=== PATIENT | female | born 1930 | race Caucasian/White ===

== ENCOUNTER 2016-04-16 17:53 | Inpatient (IN) | payer OTHER ==
[~2016-04-16] VITALS: Ht 167.6 cm; Wt 48.1 kg
--- NOTE | 2016-04-16 17:58 | NUR ---
Patient to ER bed 7 to gown for evaluation. Side rails up. Report given to CELIA RANGEL.
[2016-04-16 18:04] VITALS: BP 134/97; PULSE 60; RESP 18; TEMP 97.6; O2SAT 95
--- NOTE | 2016-04-16 18:04 | NUR ---
ER at bedside examining patient.
--- NOTE | 2016-04-16 18:04 | NUR ---
Pt brought in by niece in stable condition. Per niece, pt has been falling for 4 consecutive days. Pt resides at [facility]. Per niece, pt fell at 1230 today. Pt present w/ large hematoma and obvious deformity to right shoulder. Pt present w/ hematoma to posterior scalp. Pt has a hx of dementia, COPD, DM2, arthritis, anxiety. -sob -chest pain. No acute distress noted at this time, will continue to monitor. Niece is at bedside.
--- NOTE | 2016-04-16 18:15 | NUR ---
Pt present w/ bruising to right hip, left inner thigh. Pt present w/ excoriation to sacral area. Pt present w/ skin tear to left lower leg s/p running into table 1 wk ago.
--- NOTE | 2016-04-16 18:21 | NUR ---
# 20 gauge angiocath placed to left forearm. Use of asceptic technique. Opsite placed over site. Blood return noted. Blood for lab drawn from site and give to Lizeth technology adoption manager. Flushed with 10 cc of normal saline. No evidence of infiltration noted. Patient tolerated well.
[2016-04-16 18:28] LABS: EOSINOPHILS % (AUTO) 0.1 % (0.0-4.0); HEMATOCRIT 37.9 % (36-48); LYMPHOCYTES # (AUTO) 0.8 K/uL (1.0-5.5); LYMPHOCYTES % (AUTO) 6.2 % (20.5-51.5); MEAN CORPUSCULAR HEMOGLOBIN 35 pg (27-31); MEAN CORPUSCULAR HGB CONC 34 % (32-36); MEAN CORPUSCULAR VOLUME 101 fL (79.0-98.0); MONOCYTES # (AUTO) 0.7 K/uL (0.0-1.0); MONOCYTES % (AUTO) 5.1 % (1.7-9.3); NEUTROPHILS # (AUTO) 11.5 K/uL (1.8-7.7); NEUTROPHILS % (AUTO) 88.6 % (40.0-70.0); PLATELET COUNT (AUTO) 219 K/uL (130-430); RED BLOOD CELL COUNT(AUTO) 3.76 MIL/uL (4.2-6.2); RED CELL DISTRIBUTION WIDTH 16.4 % (9.0-15.0)
[2016-04-16 18:49] LABS: PROTHROMBIN TIME 10.9 SECS (9.5-12.5)
[2016-04-16 19:17] LABS: ANION GAP 10 (5-15); CALCIUM 9.1 mg/dL (8.4-11.0); CHLORIDE 101 mmol/L (98-107); CREATININE 0.72 mg/dL (0.55-1.30); GLUCOSE 164 mg/dL (70-99); POTASSIUM 4.3 mmol/L (3.5-5.1); SODIUM SERUM 137 mmol/L (136-145); UREA NITROGEN, BLOOD 16 mg/dL (8-21)
[2016-04-16 19:22] LABS: ALANINE AMINOTRANSFERASE 32 U/L (12-78); ASPARTATE AMINOTRANSFERASE 26 U/L (10-37); CREATINE KINASE, TOTAL 105 U/L (26-192); TOTAL BILIRUBIN 0.6 mg/dL (0.0-1.0); TOTAL PROTEIN, SERUM 6.8 g/dL (6.4-8.3)
--- NOTE | 2016-04-16 19:30 | NUR ---
Pt on stable condtion at this time, VSS, pt following commands.
[2016-04-16] MEDS ORDERED: FOLI-43 PO (19:46)
[2016-04-16] MEDS ORDERED: LIP40 PO (19:46)
[2016-04-16] MEDS ORDERED: ASPI-1063 PO (19:46)
[2016-04-16] MEDS ORDERED: ZOLP5TAB7 PO (19:46)
[2016-04-16] MEDS ORDERED: ATEN-41 PO (19:46)
[2016-04-16] MEDS ORDERED: vit C PO (19:46)
[2016-04-16] MEDS ORDERED: MONT10TA25 PO (19:46)
[2016-04-16] MEDS ORDERED: LORA1TAB PO (19:46)
[2016-04-16] MEDS ORDERED: MELA3TAB43 PO (19:46)
[2016-04-16] MEDS ORDERED: TRAM50TA2 PO (19:46)
[2016-04-16] MEDS ORDERED: METF-509 PO (19:46)
[2016-04-16] MEDS ORDERED: MET2.5 PO (19:46)
[2016-04-16] MEDS ORDERED: BUPR300T55 PO (19:46)
[2016-04-16] MEDS ORDERED: OMEP-130 PO (19:46)
[2016-04-16] MEDS ORDERED: VIT1CAPS25 PO (19:46)
[2016-04-16] MEDS ORDERED: ENAL5TAB85 PO (19:46)
[2016-04-16] MEDS ORDERED: NACL 0.9% 1,000 ML IV ONE (20:14)
[2016-04-16] MEDS ORDERED: MORPHINE 2 MG/ML INJ. SYRINGE IVP ONE (20:15)
[2016-04-16 20:44] LABS: BILIRUBIN,URINE NEGATIVE (NEGATIVE); BLOOD, URINE NEGATIVE (NEGATIVE); CLARITY/URINE CLEAR (CLEAR); COLOR,URINE YELLOW (YELLOW); GLUCOSE,URINE NEGATIVE (NEGATIVE); KETONES,URINE TRACE (NEGATIVE); LEUKOCYTE ESTERASE ,URINE NEGATIVE (NEGATIVE); NITRITE, URINE NEGATIVE (NEGATIVE); PH,URINE 5.5 (5.0-8.0); PROTEIN URINE NEGATIVE (NEGATIVE)
[2016-04-16] MEDS ORDERED: KETOROLAC TROMETHAMINE 30 MG VIAL IVP PRN (21:15)
[2016-04-16] MEDS ORDERED: MORPHINE 2 MG/ML INJ. SYRINGE IVP PRN (21:15)
--- NOTE | 2016-04-16 21:35 | NUR ---
ADMISSION NOTE Received patient from ER via gurney. Patient admitted with diagnosis of Rt shoulder fx. Patient is awake, alert, oriented X 3 accompanied by niece. Patient oriented to hospital room, call light, toileting, pain management and safety-teach back done. Patient informed that Rachel will be her nurse and that their room number is 112A. Personal belongings checked and Belongings List documented. Call light within reach.
[2016-04-16 21:40] VITALS: BP 122/74; PULSE 70; RESP 19; TEMP 98.4; O2SAT 95
--- NOTE | 2016-04-16 21:40 | NUR ---
Patient will be admitted to care of Dr. To. Admitted to med surg unit. Will go to room 112-a. Belongings list completed. Summary report printed. Report given to CELIA Ramos.
[2016-04-16 22:00] VITALS: BP 122/74; PULSE 70; RESP 19; TEMP 98.4; O2SAT 95
--- NOTE | 2016-04-16 22:00 | NUR ---
Opening Note Report received from ER nurse. Patient is in stable condition. Right shoulder bruise observed. IV is to the left FA 20g currently running NS @ TKO. Patient is on a bed alarm and is close to the nurses station. Yellow falls risk band was also placed on her. Call light is within reach. Instructed the patient to use it whenever in need of assistance.
[2016-04-17] VITALS: BP 128/67; PULSE 53; RESP 15; TEMP 98.4; O2SAT 94
--- NOTE | 2016-04-17 00:40 | NUR ---
Rounds Patient is in stable condition. Dr. To spoke with the patient at the bedside and entered orders.
--- NOTE | 2016-04-17 01:29 | NUR ---
CONSULTATION PAGED REASON FOR CONSULTATION:MULTIPLE FALLS WAS CONSULT CALLED?Y PERSON WHO WAS NOTIFIED:JOSE EDUARDO CONSULTING PHYSICIAN:NEGRITA HONG PAPER AND PULP MILL WORKER SPECIALTY:NEURO PAPER AND PULP MILL WORKER PHONE NUMBER:[phone]
[2016-04-17] MEDS ORDERED: INSULIN REGULAR, HUMAN 100 UNITS/ML, 10 ML VIAL (novoLIN R) SUBCUT PRN (01:30)
[2016-04-17] MEDS ORDERED: DEXTROSE 50% JECT 50 ML DISP.SYRIN IVP PRN (01:30)
--- NOTE | 2016-04-17 01:32 | NUR ---
CONSULTATION PAGED REASON FOR CONSULTATION:RIGHT SHOULDER FRACTURE WAS CONSULT CALLED?Y PERSON WHO WAS NOTIFIED:JOSE EDUARDO CONSULTING PHYSICIAN:JOSH GARCIA ([employer]UENTES CLINICAL NURSING INTERN) CERTIFIED ADAPTED PHYSICAL EDUCATOR SPECIALTY:ORTHO CERTIFIED ADAPTED PHYSICAL EDUCATOR PHONE NUMBER:[phone]
--- NOTE | 2016-04-17 02:37 | NUR ---
Rounds Patient is resting in bed. Call light is within reach. Bed alarm is on.
[2016-04-17 04:00] VITALS: BP 142/71; PULSE 65; RESP 16; TEMP 97.4; O2SAT 95
--- NOTE | 2016-04-17 04:37 | NUR ---
Rounds Patient is resting in bed. Call light is within reach.
--- NOTE | 2016-04-17 06:28 | NUR ---
Closing Note Patient is in stable condition. Last blood sugar was 118. No coverage needed. IV is on the RFA 20g, saline locked. Call light is within reach. Bed is in low position and bed alarm is on. Will give report to the oncoming nurse.
--- NOTE | 2016-04-17 07:20 | NUR ---
Initial notes: pt on bed awake, alert and oriented. I.V. access [id number]. scd in placed. discussed plan of care. call light within reach. report received at bedside.
[2016-04-17 07:48] LABS: BASOPHILS % (AUTO) 0.2 % (0.0-2.0); EOSINOPHILS % (AUTO) 0.2 % (0.0-4.0); HEMATOCRIT 31.1 % (36-48); HEMOGLOBIN 10.2 g/dL (12.0-16.0); LYMPHOCYTES # (AUTO) 1.1 K/uL (1.0-5.5); LYMPHOCYTES % (AUTO) 14.1 % (20.5-51.5); MEAN CORPUSCULAR HEMOGLOBIN 34 pg (27-31); MEAN CORPUSCULAR HGB CONC 33 % (32-36); MEAN CORPUSCULAR VOLUME 103 fL (79.0-98.0); MONOCYTES # (AUTO) 1.1 K/uL (0.0-1.0); MONOCYTES % (AUTO) 14.5 % (1.7-9.3); NEUTROPHILS # (AUTO) 5.7 K/uL (1.8-7.7); PLATELET COUNT (AUTO) 179 K/uL (130-430); RED BLOOD CELL COUNT(AUTO) 3.03 MIL/uL (4.2-6.2); RED CELL DISTRIBUTION WIDTH 15.8 % (9.0-15.0)
[2016-04-17 07:52] LABS: WHITE BLOOD COUNT (AUTO) 7.9 K/uL (4.8-10.8)
[2016-04-17 08:00] VITALS: BP 123/60; PULSE 57; RESP 16; TEMP 98.8
[2016-04-17 08:26] LABS: ALANINE AMINOTRANSFERASE 27 U/L (12-78); ALBUMIN 3.1 g/dL (3.4-4.8); ANION GAP 7 (5-15); ASPARTATE AMINOTRANSFERASE 20 U/L (10-37); CALCIUM 8.2 mg/dL (8.4-11.0); CHLORIDE 103 mmol/L (98-107); CREATININE 0.84 mg/dL (0.55-1.30); GLUCOSE 148 mg/dL (70-99); PHOSPHORUS 3.6 mg/dL (2.7-4.5); POTASSIUM 3.7 mmol/L (3.5-5.1); SODIUM SERUM 137 mmol/L (136-145); TOTAL BILIRUBIN 0.6 mg/dL (0.0-1.0); TOTAL PROTEIN, SERUM 5.5 g/dL (6.4-8.3); UREA NITROGEN, BLOOD 18 mg/dL (8-21)
[2016-04-17] MEDS: ASPIRIN 81 MG TABLET(ECOTRIN) PO SCH (08:43)
[2016-04-17] MEDS: buPROPion HCL 150 MG XL TAB PO SCH (08:43)
[2016-04-17] MEDS: FOLIC ACID 1 MG TABLET PO SCH (08:43)
[2016-04-17] MEDS: ENALAPRIL MALEATE 5 MG TABLET (VASOTEC) PO SCH (08:46)
[2016-04-17] MEDS: ATENOLOL 25 MG TABLET(TENORMIN) PO SCH (08:48)
[2016-04-17] MEDS ORDERED: LORazepam 1 MG TABLET PO SCH (09:00)
--- NOTE | 2016-04-17 10:30 | NUR ---
rounds: pt transferred room due to pt wants to stand up. Placed in other room with sitter.
--- NOTE | 2016-04-17 11:23 | NUR ---
CONSULT: CALLED FOR THE ORTHO CONSULT. SPOKE WITH THE MISCELLANEOUS MACHINE OPERATOR GATO.
[2016-04-17 12:41] VITALS: BP 111/66; PULSE 69; RESP 18; TEMP 98.4; O2SAT 91
--- NOTE | 2016-04-17 14:00 | NUR ---
Dianne. telephone conversation with
--- NOTE | 2016-04-17 14:30 | NUR ---
Lissa miguel: Dr. Nelson and Dr. Cruz seen the pt.
[2016-04-17 16:00] VITALS: BP 117/63; PULSE 74; RESP 17; TEMP 97.8; O2SAT 91
--- NOTE | 2016-04-17 17:00 | NUR ---
rounds: pt coughing while drinking water. Informed Dr. Nelson with new orders.
--- NOTE | 2016-04-17 19:30 | NUR ---
closing notes: pt on bed resting. no distress noted. needs attended. call light within reach. report given at bedside.
--- NOTE | 2016-04-17 19:35 | NUR ---
INITIAL NOTE Patient resting on the bed. Alert, awake with confusion. Respiration even and unlabored. No acute distress. Skin warn and dry to touch. SL intact to LFA, no redness, no swelling, patent. Sling in placed to right arm. Sitter at bedside. SCD in placed. Bed alarm on, bed in low position, side rails up. Call light within reached. Will continue to monitor.
[2016-04-17 19:50] VITALS: BP 118/58; PULSE 76; RESP 18; TEMP 97.6; O2SAT 92
[2016-04-17] MEDS ORDERED: ATORVASTATIN 20 MG TABLET PO SCH (21:00)
[2016-04-17] MEDS ORDERED: MONTELUKAST 10 MG TABLET PO SCH (21:00)
--- NOTE | 2016-04-17 21:30 | NUR ---
ROUND Patient resting on the bed. No acute distress. Safety measure maintained. Bed in low position, side rials up, bed alarm on, sitter at bedside. Call light within reached. Will continue to monitor.
--- NOTE | 2016-04-17 23:40 | NUR ---
ROUND Patient resting on the bed with eyes closed. No acute distress. Safety measure maintained. Bed in low position, side rials up, bed alarm on, sitter at bedside. Call light within reached. Will continue to monitor.
[2016-04-18] VITALS (7 sets, daily range): BP systolic 103–128; BP diastolic 55–67; PULSE 57–75; RESP 15–18; TEMP 97.4–99; O2SAT 92–100; Ht 167.6 cm; Wt 48.1 kg
--- NOTE | 2016-04-18 01:35 | NUR ---
ROUND Patient sleeping at this time. No acute distress. Sitter at bedside. Safety measure maintained. Bed in low position, side rials up, bed alarm on. Call light within reached. Will continue to monitor.
--- NOTE | 2016-04-18 03:10 | NUR ---
ROUND Patient sleeping comfortable. No acute distress. Sitter at bedside. Bed in low position, side rials up, bed alarm on. Call light within reached. Continue to monitor.
[2016-04-18 06:34] LABS: BASOPHILS % (AUTO) 0.1 % (0.0-2.0); EOSINOPHILS % (AUTO) 0.1 % (0.0-4.0); HEMATOCRIT 30.3 % (36-48); LYMPHOCYTES % (AUTO) 10.3 % (20.5-51.5); MEAN CORPUSCULAR HEMOGLOBIN 34 pg (27-31); MEAN CORPUSCULAR HGB CONC 33 % (32-36); MEAN CORPUSCULAR VOLUME 102 fL (79.0-98.0); MONOCYTES # (AUTO) 1.7 K/uL (0.0-1.0); MONOCYTES % (AUTO) 17.1 % (1.7-9.3); NEUTROPHILS # (AUTO) 7.1 K/uL (1.8-7.7); NEUTROPHILS % (AUTO) 72.4 % (40.0-70.0); PLATELET COUNT (AUTO) 160 K/uL (130-430); RED BLOOD CELL COUNT(AUTO) 2.98 MIL/uL (4.2-6.2); RED CELL DISTRIBUTION WIDTH 16.1 % (9.0-15.0); WHITE BLOOD COUNT (AUTO) 9.8 K/uL (4.8-10.8)
--- NOTE | 2016-04-18 06:50 | NUR ---
CLOSING NOTE Patient resting on the bed. Respiration even and unlabored. No acute distress. Skin warn and dry to touch. SL intact to LFA, no redness, no swelling. Sling in placed to right arm. Sitter at bedside. SCD in placed. All needs met. Hourly rounding during shift. Safety measure maintained. Bed alarm on, bed in low position, side rails up. Call light within reached. Will continue to monitor.
[2016-04-18 06:52] LABS: ANION GAP 6 (5-15); CALCIUM 8.5 mg/dL (8.4-11.0); CHLORIDE 104 mmol/L (98-107); GLUCOSE 115 mg/dL (70-99); POTASSIUM 3.8 mmol/L (3.5-5.1); SODIUM SERUM 136 mmol/L (136-145); UREA NITROGEN, BLOOD 14 mg/dL (8-21)
--- NOTE | 2016-04-18 07:25 | NUR ---
am rounds: patient on the bed,sleeping. with right shoulder immobilizer on and large bruised on and swelling noted. iv saline lock at left forearm intact.with sitter at bedside.
--- NOTE | 2016-04-18 07:51 | NUR ---
Nutrition Update Ruben Scale 15 noted. Pt admitted for R shoulder fracture. Diet: R shoulder fracture BMI: M RD to follow per nutrition care standards. Nutrition Update Ruben Scale 15 noted. Pt admitted for R shoulder fracture. Diet: mechanical soft, CCHO standard carb-60 gm, nectar thick liquids BMI: 17.1 kg/m2 RD to follow per nutrition care standards. Addendum: 04/18/16 at [address] CORRECTION: Nutrition Update Ruben Scale 15 noted. Pt admitted for R shoulder fracture. Diet: mechanical soft, CCHO standard carb-60 gm, nectar thick liquids BMI: 17.1 kg/m2 RD to follow per nutrition care standards.
[2016-04-18] MEDS: FOLIC ACID 1 MG TABLET PO SCH (09:23)
[2016-04-18] MEDS: ASPIRIN 81 MG TABLET(ECOTRIN) PO SCH (09:23)
[2016-04-18] MEDS: ENALAPRIL MALEATE 5 MG TABLET (VASOTEC) PO SCH (09:23)
[2016-04-18] MEDS: ATENOLOL 25 MG TABLET(TENORMIN) PO SCH (09:24)
[2016-04-18] MEDS: buPROPion HCL 150 MG XL TAB PO SCH (09:24)
--- NOTE | 2016-04-18 09:45 | NUR ---
MEDS: PLACED ON HIGH BARILLAS'S POSITION. TOOK PO MEDS WELL.
--- NOTE | 2016-04-18 11:18 | NUR ---
blood sugar: blood sugar taken,no insulin coverage per sliding scale.
--- NOTE | 2016-04-18 12:20 | NUR ---
rounds: sitter assisting patient during lunch.
--- NOTE | 2016-04-18 14:25 | NUR ---
rounds: with sitter at bedside. stable.
--- NOTE | 2016-04-18 15:01 | NUR ---
DC PLANNING Spoke w Dr Nelson in [facility], states dc'd pt to SNF that already discussed w pt's niece & POA & want [facility]. Called & left msg stefanie Choi @ [facility], ph [phone], that pt has order to [facility]. I Called & spoke w Paloma Dukes, ph [phone], states she already discussed w Dr Nelson earlier today & agreeable w SNF. States pt lives @ [facility] side & wants her to go to [facility]. Updated n[place] capacity planner. Addendum: 04/18/16 at 1508 by Vivian HINTON DC order to [facility]. Faxed SNF referral to [phone]. Will follow up. Addendum: 04/18/16 at 1540 by Vivian HINTON Called [facility] admitting in meeting and will return call to DCP. DCP will follow up. Received call from JESSIE at [facility] [phone] on will call. Addendum: 04/18/16 at 1619 by Vivian HINTON spoke with Vipul in admitting who accepted patient for SNF and will return call to DCP with bed assignment. Placed transportation packet in nurses station. Addendum: 04/18/16 at 1635 by Vivian HINTON Patient assigned to room 135B, RN to report [phone]. CELIA Hernandez made aware. Called [facility] spoke with Cayetano arranged transport picking crew supervisor 7pm. Nofied patient Niece Thi Dukes ph [phone] left voice message with time ambulance has been arranged.
--- NOTE | 2016-04-18 16:15 | NUR ---
rounds: patient sleeping during rounds. with sitter at bedside. stable.
--- NOTE | 2016-04-18 17:00 | NUR ---
blood sugar: blood sugar taken,no insulin coverage per sliding scale.
--- NOTE | 2016-04-18 18:00 | NUR ---
rounds: patient had dinner. sitter preparing patient for transfer.
--- NOTE | 2016-04-18 19:00 | NUR ---
report: report given to mary kate roche from [facility].
--- NOTE | 2016-04-18 19:30 | NUR ---
closing notes: report given to night nurse miguelina,patient for transfer to [facility]. transitional care packets ready. stable.
--- NOTE | 2016-04-18 19:40 | NUR ---
INITIAL NOTE Patient resting on the bed. Alert, awake with confusion. Respiration even and unlabored. No acute distress. VS: T=97.8, P=68, R=16, B/P=114/58, O2 sat=93%RA. Skin warn and dry to touch. SL intact to LFA, no redness, no swelling, patent. Sling in placed to right arm. Sitter at bedside. Safety measure maintained. Bed alarm on, bed in low position, side rails up. Call light within reached. Waiting ambulation to garbage pick up man and transfer to [facility] tonight.
--- NOTE | 2016-04-18 20:20 | NUR ---
PT TRANSFERRED Report given to Jaquelin from [facility] by morning shift nurse, Adeola YANG. Transfer packet with Transfer Orders and Medication Reconciliation form given to EMT with report. Exitcare provided. [facility] ID band removed, replaced with ID band with pt's name and . IV catheter removed, intact and dressing applied, no active bleeding. All belongings sent with patient. Patient left floor via gurney escorted by EMT in no distress.
== END 2016-04-18 20:20 | DRG 562 ==
LOC: SED 17:53 → SMU 21:14
PROVIDERS: ADMIT Family Medicine; ATTEND Family Medicine
DX: S42.291A Other displaced fracture of upper end of right humerus, initial encounter for closed fracture (principal); G93.40 Encephalopathy, unspecified; J44.9 Chronic obstructive pulmonary disease, unspecified; F03.90 Unspecified dementia, unspecified severity, without behavioral disturbance, psychotic disturbance, mood disturbance, and anxiety; E11.9 Type 2 diabetes mellitus without complications; K21.9 Gastro-esophageal reflux disease without esophagitis; I10 Essential (primary) hypertension; F41.9 Anxiety disorder, unspecified; M19.90 Unspecified osteoarthritis, unspecified site; F43.10 Post-traumatic stress disorder, unspecified; R13.10 Dysphagia, unspecified; W18.39XA Other fall on same level, initial encounter; Y93.89 Activity, other specified; Y92.89 Other specified places as the place of occurrence of the external cause; Y99.8 Other external cause status; Z86.73 Personal history of transient ischemic attack (TIA), and cerebral infarction without residual deficits; Z87.891 Personal history of nicotine dependence; Z88.1 Allergy status to other antibiotic agents; Z88.0 Allergy status to penicillin
CPT/HCPCS: 36415; 70450-TC; 71010; 73030; 73200-TC; 73510-TC; 80048; 80053; 81003; 82550-TC; 82962; 83735-TC; 83880; 84100-TC; 84484; 85025; 85610-TC; 85730-TC; 93005; 96374; 99285; J1815; J1885; J2270; J7030; J8610

== ENCOUNTER 2016-06-12 13:15 | Inpatient (IN) | payer OTHER ==
[2016-04-18 17:03] VITALS: Ht 152.4 cm; Wt 47.6 kg
[~2016-06-12] VITALS: Ht 152.4 cm; Wt 47.6 kg
[2016-06-12 13:15] VITALS: BP 91/48; PULSE 58; RESP 33; TEMP 96.3; O2SAT 97
[~2016-06-12 13:15] MED LIST: ASPI-1063 PO; ATEN-41 PO; BUPR300T55 PO; ENAL5TAB85 PO; FOLI-43 PO; LIP40 PO; LORA1TAB PO; MELA3TAB43 PO; MET2.5 PO; METF-509 PO; MONT10TA25 PO; OMEP-130 PO; TRAM50TA2 PO; VIT1CAPS25 PO; ZOLP5TAB7 PO; vit C PO
--- NOTE | 2016-06-12 13:15 | NUR ---
BIB sq 64 from [facility]. Placed in room 01. Placed on court recording monitor, blood pressure machine and pulse oximeter. To gown for exam. Side rails up.
--- NOTE | 2016-06-12 13:20 | NUR ---
Dr. Sears at bedside for evaluation
--- NOTE | 2016-06-12 13:22 | NUR ---
Pt bib EMS for Syncope at [facility]. Pt hypotensive en route per report. Pt receiving bolus from EMS.Pt BP improved.Will monitor. Pt h/o COPD,Dementia and DNR.
[2016-06-12] MEDS ORDERED: NS 500 ML IV ONE (13:30)
--- NOTE | 2016-06-12 13:40 | NUR ---
Pt's family at bedside.
[2016-06-12 13:56] LABS: BASOPHILS % (AUTO) 0.5 % (0.0-2.0); EOSINOPHILS # (AUTO) 0.2 K/uL (0.0-0.4); EOSINOPHILS % (AUTO) 1.9 % (0.0-4.0); HEMATOCRIT 38.1 % (36-48); HEMOGLOBIN 12.6 g/dL (12.0-16.0); LYMPHOCYTES # (AUTO) 1.9 K/uL (1.0-5.5); LYMPHOCYTES % (AUTO) 20.6 % (20.5-51.5); MEAN CORPUSCULAR HEMOGLOBIN 34 pg (27-31); MEAN CORPUSCULAR HGB CONC 33 % (32-36); MEAN CORPUSCULAR VOLUME 101 fL (79.0-98.0); MONOCYTES # (AUTO) 1.3 K/uL (0.0-1.0); MONOCYTES % (AUTO) 13.5 % (1.7-9.3); NEUTROPHILS # (AUTO) 6.1 K/uL (1.8-7.7); NEUTROPHILS % (AUTO) 63.5 % (40.0-70.0); PLATELET COUNT (AUTO) 266 K/uL (130-430); RED BLOOD CELL COUNT(AUTO) 3.76 MIL/uL (4.2-6.2); RED CELL DISTRIBUTION WIDTH 14.9 % (9.0-15.0); WHITE BLOOD COUNT (AUTO) 9.5 K/uL (4.8-10.8)
[2016-06-12 14:09] LABS: ANION GAP 4 (5-15); CALCIUM 8.1 mg/dL (8.4-11.0); CHLORIDE 106 mmol/L (98-107); GLUCOSE 99 mg/dL (70-99); POTASSIUM 4.1 mmol/L (3.5-5.1); SODIUM SERUM 135 mmol/L (136-145); UREA NITROGEN, BLOOD 20 mg/dL (8-21)
[2016-06-12 14:25] LABS: ALANINE AMINOTRANSFERASE 52 U/L (12-78); ALBUMIN 3.1 g/dL (3.4-4.8); ASPARTATE AMINOTRANSFERASE 28 U/L (10-37); FREE T4 (FREE THYROXINE) 0.9 ng/dL (0.6-1.6); TOTAL BILIRUBIN 0.3 mg/dL (0.0-1.0)
[2016-06-12 14:29] LABS: ALCOHOL, BLOOD < 3 mg/dL (<10)
--- NOTE | 2016-06-12 14:41 | NUR ---
Patient transported to radiology via CT scan, accompanied by rad staff.
--- NOTE | 2016-06-12 14:52 | NUR ---
Back from CT, tolerated well.
[2016-06-12] MEDS ORDERED: DONE5TAB3 PO (15:24)
[2016-06-12] MEDS ORDERED: SER25 PO (15:24)
--- NOTE | 2016-06-12 15:24 | NUR ---
Medication reconciliation completed with information provided by [facility] [place]. Any prior medication reconciliation on file was reviewed and corrected.
[2016-06-12] MEDS ORDERED: NACL 0.9% 1,000 ML IV ONE (15:30)
--- NOTE | 2016-06-12 15:38 | NUR ---
Telemetry strip printed and interpreted as irregular sinus rhythm. HR: 58
--- NOTE | 2016-06-12 15:45 | NUR ---
assessment notes: patient oriented to name,date of and place. iv saline lock at left forearm intact.with another iv saline lock at right ac intact. no distress.call light within reach. granddaughter at bedside. sinus simran on the monitor.
--- NOTE | 2016-06-12 15:55 | NUR ---
Patient will be admitted to care of . Admitted to telemetry unit. Will go to room 121c. Belongings list completed. Summary report printed. Report will be given at bedside.
[2016-06-12 15:57] LABS: PROTHROMBIN TIME 11.2 SECS (9.5-12.5)
--- NOTE | 2016-06-12 16:00 | NUR ---
ADDED NOTES: PATIENT STATUS DNR,FORM SIGNED BY DR JIMÉNEZ.
[2016-06-12 16:15] VITALS: BP 99/44; PULSE 53; RESP 14; TEMP 98.5; O2SAT 95
--- NOTE | 2016-06-12 17:30 | NUR ---
ACCUCHECK NOTES: BLOOD SUGAR TAKEN,NO INSULIN COVERAGE ORDERED.
[2016-06-12] MEDS ORDERED: traMADol HCL HCL 50 MG TABLET (ULTRAM) PO PRN (17:45)
[2016-06-12] MEDS ORDERED: BISACODYL 10 MG/SUPPOSITORY RC PRN (17:47)
[2016-06-12] MEDS ORDERED: DEXTROSE 50% JECT 50 ML DISP.SYRIN IVP PRN (18:00)
[2016-06-12] MEDS ORDERED: BISACODYL 10 MG/SUPPOSITORY RC ONE (18:30)
--- NOTE | 2016-06-12 18:36 | NUR ---
PAGED PAGED CHAU VALDIVIA AT [phone] SPOKE WITH ANTONIO.
--- NOTE | 2016-06-12 18:40 | NUR ---
NEW ORDERS: SPOKE WTIH DR JIMÉNEZ ,WITH ORDERS ON MECH FINELY CHOPPED,THICKENERS.SCD'S FOR DVT PROPHYLAXIS.
--- NOTE | 2016-06-12 19:00 | NUR ---
CLOSING NOTES: DULCOLAX SUPPOSITORY INSERTED PER RECTUM ORDERED. WITH SOME SOFT VALDERRAMA BROWN STOOLS COMING OUT. STABLE. WITH RIGHT SHOULDER SLING /IMMOBILIZER ON. CONTINUE TO MONITOR.BED ALARM ON.
[2016-06-12 19:30] VITALS: BP 120/63; PULSE 62; RESP 16; TEMP 97.2; O2SAT 98
--- NOTE | 2016-06-12 19:30 | NUR ---
NOTES RECEIVED THE PT FROM THE DAY NURSE.PT A/A/OX3 PARTS PRODUCT ANALYST IS AT THE BEDSIDE FEEDING THE PT.ARM SLING IN PLACE TO RT ARM DUE TO FRACTURE OF THE HUMERUS. MINITOR IN PLACE AND SHOWS SR.SCD IN PLACE TO LOWER EXTREMITIES.BRUSES NOTED TO LEGS AND ARMS. IV INTACT TO LT FOREARM,NO REDNESS OR SWELLING NOTED.CALL LIGHT WITHIN REACH.SAFETY MEASURES IN PROGRESS.CONTINUE TO MONITOR.
[2016-06-12] MEDS ORDERED: QUEtiapine FUMARATE 25 MG TABLET PO SCH (21:00)
[2016-06-12] MEDS ORDERED: ZOLPIDEM TARTRATE 5 MG TABLET PO SCH (21:00)
--- NOTE | 2016-06-12 21:38 | NUR ---
NOTES PT SLEEPING.ACCUCHECK WAS 116.NO DISTRESS NOTED.CONTINUE TO MONITOR.
--- NOTE | 2016-06-12 23:12 | NUR ---
NOTES PT SLEEPING,NO DISTRESS NOTED.CONTINUE TO MONITOR.
[2016-06-13] VITALS (7 sets, daily range): BP systolic 112–142; BP diastolic 57–82; PULSE 51–74; RESP 17–20; TEMP 97–98.4; O2SAT 94–99
--- NOTE | 2016-06-13 01:12 | NUR ---
notes pt sleeping,no distress noted.call light within reach.continue to monitor.
--- NOTE | 2016-06-13 02:58 | NUR ---
notes pt incontinent of stool.pt cleaned linen changed.scd applied to lower extremities.
--- NOTE | 2016-06-13 03:15 | NUR ---
notes resting with eyes closed,call light within reach.continue to monitor.
--- NOTE | 2016-06-13 05:22 | NUR ---
notes pt awake and wants to get up for breakfast.pt told to rest for 2 hours till breakfast comes.
--- NOTE | 2016-06-13 06:24 | NUR ---
closing notes accucheck was 78 pt wants breakfast.was told it will be soon.will endorse the care of the pt to the day nurse.
[2016-06-13 06:49] LABS: BASOPHILS # (AUTO) 0.1 K/uL (0.0-0.2); BASOPHILS % (AUTO) 0.4 % (0.0-2.0); EOSINOPHILS # (AUTO) 0.1 K/uL (0.0-0.4); HEMATOCRIT 40.2 % (36-48); HEMOGLOBIN 13.4 g/dL (12.0-16.0); LYMPHOCYTES % (AUTO) 15.4 % (20.5-51.5); MEAN CORPUSCULAR HEMOGLOBIN 34 pg (27-31); MEAN CORPUSCULAR HGB CONC 33 % (32-36); MEAN CORPUSCULAR VOLUME 101 fL (79.0-98.0); MONOCYTES # (AUTO) 1.1 K/uL (0.0-1.0); MONOCYTES % (AUTO) 8.5 % (1.7-9.3); NEUTROPHILS # (AUTO) 9.8 K/uL (1.8-7.7); NEUTROPHILS % (AUTO) 74.7 % (40.0-70.0); PLATELET COUNT (AUTO) 257 K/uL (130-430); RED BLOOD CELL COUNT(AUTO) 3.97 MIL/uL (4.2-6.2); RED CELL DISTRIBUTION WIDTH 15.1 % (9.0-15.0)
[2016-06-13 06:53] LABS: ANION GAP 8 (5-15); CALCIUM 8.9 mg/dL (8.4-11.0); CHLORIDE 106 mmol/L (98-107); CREATININE 0.82 mg/dL (0.55-1.30); GLUCOSE 94 mg/dL (70-99); POTASSIUM 4.1 mmol/L (3.5-5.1); SODIUM SERUM 136 mmol/L (136-145); UREA NITROGEN, BLOOD 13 mg/dL (8-21)
[2016-06-13 06:54] LABS: WHITE BLOOD COUNT (AUTO) 13.1 K/uL (4.8-10.8)
--- NOTE | 2016-06-13 08:01 | NUR ---
INITIAL NOTE PT AWAKE, SITTING UP IN BED, A/O X2, ABLE TO MAKE NEEDS KNOWN, GREY IRON MOLDER AT BEDSIDE, NO S/S OF DISTRESS OR COMPLAINT OF PAIN, SLING IN PLACE TO RIGHT ARM, SCDS IN PLACE, BRUISING NOTED TO BILATERAL LEGS AND ARMS, IV TO LEFT HAND INTACT, SL, NO S/S OF INFILTRATION NOTED, SAFETY MEASURES IN PLACE, PT REORIENTED TO USE OF CALL LIGHT AND IT IS PLACED WITHIN REACH, BED IN LOW POSITION AND LOCKED, BED ALARM ON, WILL FOLLOW UP
[2016-06-13] MEDS ORDERED: ASPIRIN 81 MG TABLET(ECOTRIN) PO SCH (09:00)
[2016-06-13] MEDS ORDERED: buPROPion HCL 150 MG XL TAB PO SCH (09:00)
--- NOTE | 2016-06-13 10:00 | NUR ---
ROUNDS PT SITTING UP IN BED, SITTER AT BEDSIDE, IV TO RAC INTACT SL. IV TO LEFT HAND INTACT SL, NO S/S OF INFILTRATION NOTED, NEEDS ATTENDED TO, SAFETY MEASURES IN PLACE, SIDE RAILS UP X3, BED IN LOS POSITION AND LOCKED, WILL FOLLOW UP
--- NOTE | 2016-06-13 10:12 | NUR ---
DISCHARGE PLANNING DC order to SNF. Faxed SNF referral to [phone]. Will follow up. Addendum: 06/13/16 at 1127 by Vivian HINTON spoke with Liz in admitting patient assigned to room 116 RN to report [phone] bed available anytime. CELIA Boyle made aware. Called contracted ambulance [facility] [phone] spoke with Wayne arranged S transport orange picking supervisor 3pm. Placed transportation packet in nurses station. Wayne at [facility] requested call back with auth for transport. JESSIE Parker made aware. Addendum: 06/13/16 at 1145 by Elena Alanis RN Called & left msg watts assigned CM @ [facility] Elda Muro [phone], need auth for ambulance. Addendum: 06/13/16 at 1410 by Elena Alanis RN Called Elda deutsch @ [facility] Micheline is CM assigned. Called & spoke stefanie Burgess, ph [phone], gave auth [facility] ambulance w auth #[id number]. Informed Vivian.
[2016-06-13 10:22] LABS: BILIRUBIN,URINE NEGATIVE (NEGATIVE); BLOOD, URINE NEGATIVE (NEGATIVE); CLARITY/URINE SL HAZY (CLEAR); COLOR,URINE YELLOW (YELLOW); GLUCOSE,URINE NEGATIVE (NEGATIVE); KETONES,URINE NEGATIVE (NEGATIVE); LEUKOCYTE ESTERASE ,URINE NEGATIVE (NEGATIVE); NITRITE, URINE NEGATIVE (NEGATIVE); PROTEIN URINE NEGATIVE (NEGATIVE)
[2016-06-13 10:47] LABS: BARBITURATE, URINE NEGATIVE (NEG <=200); BENZODIAZEPINE, URINE NEGATIVE (NEG <=150); CANNABINOID, URINE NEGATIVE (NEG <=50); COCAINE, URINE NEGATIVE (NEG <=150); METHAMPHETAMINES SCREEN,URINE NEGATIVE (NEG <=500); OPIATE, URINE NEGATIVE (NEG <=100); PHENCYCLIDINE SCREEN,URINE NEGATIVE (NEG <=25); UR TRICYCLIC ANTIDEPRESSANTS POSITIVE (NEG <=300); URINE AMPHETAMINE NEGATIVE (NEG <=500); URINE METHADONE NEGATIVE (NEG <=200); URINE OXYCODONE SCREEN NEGATIVE (NEG <=100); URINE PROPOXYPHENE SCREEN NEGATIVE (NEG <=300)
--- NOTE | 2016-06-13 12:00 | NUR ---
ROUNDS PT SITTING UP, MEAL TRAY SET UP, ABLE TO TOLERATE MEAL WELL, NO S/S OF ASPIRATION NOTED, SITTER AT BEDSIDE ASSISTING, SAFETY MEASURES IN PLACE, CALL LIGHT WITHIN REACH, WILL FOLLOW UP
--- NOTE | 2016-06-13 12:37 | NUR ---
CALLED AMY WATT AT [phone] TO NOTIFY OF TRANSFER TO [facility], LEFT MESSAGE AWAITING CALL BACK
--- NOTE | 2016-06-13 12:52 | NUR ---
RUBEN SCALE EVALUATION: Patient evaluated for a low Ruben score of 16. Patient was awake, alert, oriented x 2, confused, and received in a Howells bed with an IsoFlex ZOLTAN mattress. Patient is unable to turn independently. Skin is fair; ecchymosis present throughout body; left lower extremity has dry scabs. Recommend reposition patient every 2 hours with pillow support, and off-load pressure areas with pillows for pressure re-distribution. Elevate, off-load and float bilateral heels with pillows. Use moisture barrier cream on buttocks and other moisture susceptible areas QID and as needed for soiling. Perform skin care and monitor skin integrity Q shift.
--- NOTE | 2016-06-13 13:40 | NUR ---
INFORMED BRIDGET AMY WATT AND NIECE, OF TRANSFER TO [facility], FAMILY AGREED WITH PLAN OF CARE.
--- NOTE | 2016-06-13 13:46 | NUR ---
REPORT GIVEN TO RODNEY SENIOR AT [facility], AWAITING RESIDENCE DIRECTOR. WILL FOLLOW UP WITH AMY WATT TO UPDATE ON TRANSFER TO [facility].
--- NOTE | 2016-06-13 14:47 | NUR ---
IV SITE TO RAC CAME OUT, BLEEDING STOPPED, PRESSURES DRESSING PLACED, NO S/S OF ACTIVE BLEEDING NOTED. IV SITE TO LEFT HAND FLUSHED, SITE NOTED TO BE INFILTRATED, IV SITE DISCONTINUED. PRESSURE DRESSING APPLIED, NO S/S OF ACTIVE BLEEDING NOTED, WILL CALL ACCEPTING FACILITY REGARDING NO IV ACCESS. ELECTRIC RAZOR ASSEMBLER AT 1500.
--- NOTE | 2016-06-13 15:20 | NUR ---
PT TRANSFERRED Report given to RODNEY SENIOR at [facility]. Transfer packet with Transfer Orders and Medication Reconciliation form given to EMT with report. Exitcare provided. [facility] ID band removed, replaced with ID band with pt's name and . IV catheter removed, intact and dressing applied, no active bleeding. All belongings sent with patient. Patient left floor via gurney escorted by EMT in no distress.
== END 2016-06-13 15:20 | DRG 69 ==
LOC: SED 13:15 → STU 15:25
PROVIDERS: ADMIT Family Medicine; ATTEND Family Medicine
DX: G45.9 Transient cerebral ischemic attack, unspecified (principal); S42.301A Unspecified fracture of shaft of humerus, right arm, initial encounter for closed fracture; J44.9 Chronic obstructive pulmonary disease, unspecified; G30.9 Alzheimer's disease, unspecified; F02.80 Dementia in other diseases classified elsewhere, unspecified severity, without behavioral disturbance, psychotic disturbance, mood disturbance, and anxiety; E11.9 Type 2 diabetes mellitus without complications; F32.9 Major depressive disorder, single episode, unspecified; R13.10 Dysphagia, unspecified; Z66 Do not resuscitate; F10.21 Alcohol dependence, in remission; F22 Delusional disorders; K59.00 Constipation, unspecified; Z88.1 Allergy status to other antibiotic agents; Z88.0 Allergy status to penicillin; Z87.891 Personal history of nicotine dependence
CPT/HCPCS: 36415; 70450-TC; 71010; 74000-TC; 80048; 80053; 80307; 81003; 82140-TC; 82962; 83605; 83880; 84439; 84484; 85025; 85610-TC; 87040-TC; 93005; 96360; 99285; G0482; J7030; J7040